=== PATIENT | male | born 1940 | race Two or more races ===

== ENCOUNTER 2023-09-30 07:47 | Outpatient (CLI) | payer OTHER | END 2023-09-30 07:50 | disposition home or self-care (01) | LOC: NUCLEAR 07:47 | PROVIDERS: ATTEND Internal Medicine Pulmonary Disease | DX: J43.2 Centrilobular emphysema (principal); R91.1 Solitary pulmonary nodule; Z72.0 Tobacco use | CPT/HCPCS: 78815; A9552 ==